=== PATIENT | female | born 1960 | race Two or more races ===

== ENCOUNTER → 2025-02-21 | Outpatient (CLI) | payer OTHER, SELFPAY ==
--- NOTE | 2025-02-21 13:45 | XR_ITS ---
Examination: Screening digital mammography, bilateral Computer aided detection 3-D breast Tomosynthesis, bilateral Date and time of exam: 02/21/2025, 1:59 PM Comparisons: July 2005 through January 2022 Indications: Screening Technique: Nonmagnified MLO, CC views of the breasts to been obtained, reconstructed from 3-D Tomosynthesis images. R2 computer aided detection program utilized for evaluation of suspicious masses and/or abnormal calcifications. 3-D Tomosynthesis images obtained. Technologist: Findings: There are scattered areas of fibroglandular density. Focal asymmetry left lower outer quadrant, 8.2 cm from the nipple on the CC view. Otherwise, no evidence of abnormal masses or suspicious calcifications. Impression: Left focal asymmetry as above. Spot compression views and possible ultrasound evaluation recommended. BI-RADS category 0: Incomplete assessment; need additional imaging evaluation
== END | disposition home or self-care (01) ==
PROVIDERS: PCP Physician Assistant; Referring Provider Physician Assistant; Visit Provider Physician Assistant
DX: Z12.31 Encounter for screening mammogram for malignant neoplasm of breast (principal); N64.89 Other specified disorders of breast
CPT/HCPCS: 77063; 77067

== ENCOUNTER → 2025-08-31 | Outpatient (CLI) | payer OTHER, MEDICAID, SELFPAY ==
--- NOTE | 2025-08-31 09:30 | XR_ITS ---
Examination: Breast ultrasound, unilateral, left Date and time of exam: August 31, 2025, 10:00 a.m. INDICATIONS: Mammogram February 21, 2025 focal asymmetry left lower outer quadrant Technique: Real-time reyes scale ultrasonographic imaging performed left breast including all 4 quadrants as well as nipple retroareolar and axillary region. Findings: 3:00 cyst 10 x 11 mm No solid nodules IMPRESSION: BI-RADS Category 2: Benign findings
--- NOTE | 2025-08-31 10:00 | XR_ITS ---
Examination: Diagnostic digital mammography, unilateral, left Computer aided detection 3-D breast Tomosynthesis, unilateral Date and time of exam: 08/31/2025, 10:13 a.m. Comparisons: October 2015 through February 2025 Indications: Further evaluation of abnormality seen on prior screening exam Technique: Nonmagnified MLO, CC views of the left breast have been obtained, reconstructed from 3-D Tomosynthesis images. R2 computer aided detection program utilized for evaluation of suspicious masses and/or abnormal calcifications. 3-D Tomosynthesis images obtained. Technologist: Findings: There are scattered areas of fibroglandular density. No evidence of abnormal masses or suspicious calcifications.The previously described abnormality does not persist on spot compression views and represents superposition of normal fibroglandular tissue. Impression: BI-RADS category 1: Negative findings (within normal) Recommend 1 year follow-up mammogram
== END | disposition home or self-care (01) ==
PROVIDERS: PCP Physician Assistant; Referring Provider Physician Assistant; Visit Provider Physician Assistant
DX: R92.312 Mammographic fatty tissue density, left breast (principal)
CPT/HCPCS: 76641; 77061; 77065; G0279